=== PATIENT | female | born 1990 ===

== ENCOUNTER → 2025-01-26 12:44 | Outpatient (REF) | payer OTHER, SELFPAY ==
--- NOTE | 2025-01-26 14:10 | OID.BR.INTR ---
[facility] Breast Navigator - Initial
- -
Date of Contact: 01/26/25
Met with patient. Patient given written information on navigator service available at [facility]. Will follow up as needed per protocol.
== END ==
LOC: WDC 12:44
PROVIDERS: ATTENDING PHYSICIAN Obstetrics & Gynecology
DX: N63.11 Unspecified lump in the right breast, upper outer quadrant (principal)
CPT/HCPCS: 88305; 19083; A4648